=== PATIENT | male | born 2000 | race African-American/Black ===

== ENCOUNTER 2025-06-16 15:48 | Emergency (ER) | payer OTHER ==
[~2025-06-16] VITALS: Ht 172.7 cm; Wt 83.9 kg
[2025-06-16] MEDS ORDERED: AMOX-CLAV 875-1 EACH PO (16:02)
[2025-06-16] MEDS ORDERED: Rabies Vaccine 1 ML VIAL IM ONE (16:05)
[2025-06-16] MEDS ORDERED: Amoxicillin/Clavulanate Pota 875 MG TAB PO ONE (16:05)
[2025-06-16] MEDS ORDERED: MUPIROCIN 15 GM TUBE T ONE (16:25)
[2025-06-16] MEDS ORDERED: Amoxicillin/Clavulanate Pota 875 MG TAB ONE (16:37)
[2025-06-16] MEDS ORDERED: Bacitracin Zinc 14 GM TUBE T ONE (16:57)
[2025-06-16] MEDS ORDERED: MUPIROCIN 15 GM TUBE ONE (16:59)
== END 2025-06-16 17:19 | disposition home or self-care (01) ==
LOC: ED 15:48 → EDSEX 15:58 → ED 15:58
DX: S50.811A Abrasion of right forearm, initial encounter (principal); S80.811A Abrasion, right lower leg, initial encounter; S60.311A Abrasion of right thumb, initial encounter; W54.0XXA Bitten by dog, initial encounter; Y93.89 Activity, other specified; Y92.89 Other specified places as the place of occurrence of the external cause; Y99.0 Civilian activity done for income or pay

== ENCOUNTER 2025-06-19 12:29 | Emergency (ER) | payer OTHER ==
[~2025-06-19] VITALS: Ht 172.7 cm; Wt 81.6 kg
[~2025-06-19 12:29] MED LIST: AMOX-CLAV 875-1 EACH PO
[2025-06-19] MEDS ORDERED: Rabies Vaccine 1 ML VIAL IM ONE (12:55)
== END 2025-06-19 13:10 | disposition home or self-care (01) ==
LOC: ED 12:29
DX: Z23 Encounter for immunization (principal)

== ENCOUNTER 2025-06-23 09:44 | Emergency (ER) | payer OTHER ==
[~2025-06-23] VITALS: Ht 172.7 cm; Wt 83.9 kg
[2025-06-23] MEDS ORDERED: Rabies Vaccine 1 ML VIAL IM ONE (10:20)
== END 2025-06-23 10:34 | disposition home or self-care (01) ==
LOC: ED 09:44
DX: Z23 Encounter for immunization (principal)